=== PATIENT | male | born 1945 | race Caucasian/White ===

== ENCOUNTER → 2021-01-09 | Outpatient (CLI) | payer MEDICARE ==
[~2021-01-09] MED LIST: AMARYL4 MG PO; ASPIRIN EC81 MG PO; ELIQUIS2.5 MG PO; JANUVIA100 MG PO; LIPITOR40 MG PO; METFORMIN HCL1000 M1 PO; METOPROLOL SUCC25 MG PO; NORCO 7.5-3251 EACH PO; NORVASC10 MG PO; ONCE DAILY1 EACH PO; TUMERIC PO; VITAMIN B-12500 MCG PO; ZESTRIL40 MG PO; ZYRTEC10 M3 PO
== END ==
LOC: KOH-I 10:05
DX: M54.2 Cervicalgia (principal); M25.511 Pain in right shoulder; M47.812 Spondylosis without myelopathy or radiculopathy, cervical region
CPT/HCPCS: 72040; 73030

== ENCOUNTER → 2021-01-27 | Outpatient (CLI) | payer MEDICARE ==
[2021-01-27 13:27] LABS: BUN/CREATININE RATIO 23 (0-10)
== END ==
LOC: LAB 12:15
PROVIDERS: Nurse Practitioner Family
DX: I10 Essential (primary) hypertension (principal)
CPT/HCPCS: 36415; 80048

== ENCOUNTER → 2021-08-04 | Outpatient (CLI) | payer MEDICARE | LOC: RAD 15:11 → KOH-I 15:11 | DX: M79.671 Pain in right foot (principal); M25.572 Pain in left ankle and joints of left foot; M79.89 Other specified soft tissue disorders | CPT/HCPCS: 73610; 73630 ==